=== PATIENT | female | born 1950 | race Caucasian/White ===

== ENCOUNTER 2021-08-29 16:57 | Inpatient (IN) | payer MEDICARE, BC ==
[~2021-08-29] VITALS: Ht 165.1 cm; Wt 78.0 kg
[~2021-08-29 16:57] MED LIST: niCARDipine in NS 40mg/200ml (0.2mg/ml) IVPB IV ONE
[2021-08-29 17:40] LABS: BASOPHILS # (AUTO) 0.1 X10'3 (0-0.2); EOSINOPHILS # (AUTO) 0.1 X10'3 (0-0.9); EOSINOPHILS % (AUTO) 1.4 % (0-6); HEMATOCRIT 38.4 % (35.0-45.0); HEMOGLOBIN 12.7 g/dl (12.0-16.0); LYMPHOCYTES # (AUTO) 2.5 X10'3 (1.1-4.8); LYMPHOCYTES % (AUTO) 32.3 % (21-51); MEAN CORPUSCULAR VOLUME 84.6 FL (78-98); MEAN PLATELET VOLUME 9.3 FL (7.4-10.4); MONOCYTES # (AUTO) 0.4 X10'3 (0-0.9); MONOCYTES % (AUTO) 5.1 % (2-12); NEUTROPHILS # (AUTO) 4.6 X10'3 (1.8-7.7); NEUTROPHILS % (AUTO) 60.2 % (42-75); PLATELET COUNT 212 X10'3 (140-440); RED BLOOD COUNT 4.54 X10'6 (4.20-5.60); WHITE BLOOD COUNT 7.7 X10'3 (4.5-11.0)
[2021-08-29] MEDS ORDERED: niCARDipine-NS 40mg/200ml IVPB 200 ML IV PRN ×2 (17:55→20:50)
[2021-08-29 18:01] LABS: APTT 27 SECONDS (22-32)
[2021-08-29 18:04] LABS: ALANINE AMINOTRANSFERASE 22 U/L (12-78); ALBUMIN 3.8 G/DL (3.4-5.0); ALBUMIN/GLOBULIN RATIO 1.2 (1.1-1.5); ALKALINE PHOSPHATASE 45 IU/L (46-116); ANION GAP 9 (8-16); ASPARTATE AMINO TRANSFERASE 14 U/L (10-37); BILIRUBIN,TOTAL 0.3 MG/DL (0.1-1.0); BLOOD UREA NITROGEN 17 MG/DL (7-18); BUN/CREATININE RATIO 22.7 (6.6-38.0); CALCIUM 9.5 MG/DL (8.5-10.1); CHLORIDE 104 MMOL/L (99-107); CREATININE 0.75 MG/DL (0.40-0.90); GLUCOSE 105 MG/DL (70-104); POTASSIUM 3.4 MMOL/L (3.5-5.1); SODIUM 143 MMOL/L (135-145); TOTAL CARBON DIOXIDE 29.8 MMOL/L (24-32); TOTAL PROTEIN 6.9 G/DL (6.4-8.2); eGFR 77 ML/MIN
[2021-08-29] MEDS ORDERED: iohexol 350MG/ML 100ml bottle IV ONE (18:21)
--- NOTE | 2021-08-29 18:39 | NUR ---
ASSUMED CARE OF PT. PT WITH STROKE RN IN ROOM.
[2021-08-29 19:04] LABS: HEMOGLOBIN A1C 5.6 % (4.5-6.2)
--- NOTE | 2021-08-29 19:39 | NUR ---
At [address] Watson and Dr. Rodriguez (teleneurologist) that TPa was indicated. Drawn up with ED RN at bedside and verified with two RNs. Bolus administered at 1800 with subsequent infusion beginning at 1801 and finishing at 1901. Nicardipine was initiated at 1820 after BP was 182/70 - only initiated at 2.5mg/hr instead of 5mg/hr. BP came down safely to 170s-160s. While pt. was in CTA BP down to 140s systolically, and Nicardipine stopped until further need arises.
[2021-08-29] MEDS ORDERED: morphine 2 MG/ML inj. syringe IV PRN (21:15)
[2021-08-29] MEDS ORDERED: acetaminophen 325mg tablet PO PRN ×2 (21:15)
[2021-08-29] MEDS ORDERED: ondansetron/PF 4mg/2ml inj IV PRN (21:15)
[2021-08-29] MEDS ORDERED: magnesium hydroxide 30ml (MOM) UD suspension PO PRN (21:15)
[2021-08-29] MEDS: niCARDipine-NS 40mg/200ml IVPB 200 ML IV SCH (21:15)
[2021-08-29] MEDS ORDERED: potassium Cl 20 mEq SR tablet PO PRN ×2 (21:15)
[2021-08-29] MEDS: normal saline 1000ml 1,000 ML IV SCH ×2 (21:28→21:36)
--- NOTE | 2021-08-29 21:52 | NUR ---
Assembly Associate on the [facility] speaking to pt
[2021-08-29 21:58] LABS: BASOPHILS # (AUTO) 0.1 X10'3 (0-0.2); BASOPHILS % (AUTO) 0.9 % (0-1); EOSINOPHILS # (AUTO) 0.1 X10'3 (0-0.9); HEMATOCRIT 41.1 % (35.0-45.0); HEMOGLOBIN 13.5 g/dl (12.0-16.0); LYMPHOCYTES # (AUTO) 2.1 X10'3 (1.1-4.8); LYMPHOCYTES % (AUTO) 28.7 % (21-51); MEAN CORPUSCULAR HEMOGLOBIN 27.8 PG (27.0-31.0); MEAN CORPUSCULAR HGB CONC 32.8 g/dL (33.0-36.5); MEAN CORPUSCULAR VOLUME 84.8 FL (78-98); MEAN PLATELET VOLUME 9.3 FL (7.4-10.4); MONOCYTES # (AUTO) 0.4 X10'3 (0-0.9); MONOCYTES % (AUTO) 5.4 % (2-12); NEUTROPHILS # (AUTO) 4.6 X10'3 (1.8-7.7); PLATELET COUNT 208 X10'3 (140-440); RED BLOOD COUNT 4.85 X10'6 (4.20-5.60); RED CELL DISTRIBUTION WIDTH 13.7 % (11.5-14.5); WHITE BLOOD COUNT 7.2 X10'3 (4.5-11.0)
[2021-08-29 22:20] LABS: ALANINE AMINOTRANSFERASE 23 U/L (12-78); ALBUMIN 3.9 G/DL (3.4-5.0); ALBUMIN/GLOBULIN RATIO 1.4 (1.1-1.5); ALKALINE PHOSPHATASE 49 IU/L (46-116); ANION GAP 10 (8-16); ASPARTATE AMINO TRANSFERASE 15 U/L (10-37); BILIRUBIN,TOTAL 0.3 MG/DL (0.1-1.0); BLOOD UREA NITROGEN 15 MG/DL (7-18); BUN/CREATININE RATIO 22.4 (6.6-38.0); CALCIUM 9.3 MG/DL (8.5-10.1); CHLORIDE 106 MMOL/L (99-107); CREATININE 0.67 MG/DL (0.40-0.90); GLUCOSE 88 MG/DL (70-104); POTASSIUM 3.8 MMOL/L (3.5-5.1); SODIUM 144 MMOL/L (135-145); TOTAL CARBON DIOXIDE 28.3 MMOL/L (24-32); TOTAL PROTEIN 6.7 G/DL (6.4-8.2); eGFR 88 ML/MIN
[2021-08-29] MEDS: atorvastatin 20mg tablet PO SCH (22:36)
[2021-08-29 23:30] VITALS: BP 155/73
[2021-08-30] VITALS (41 sets, daily range): BP systolic 103–175; BP diastolic 58–97
[2021-08-30] MEDS: niCARDipine-NS 40mg/200ml IVPB 200 ML IV SCH ×2 (05:15→13:15)
[2021-08-30 05:29] LABS: BASOPHILS # (AUTO) 0.1 X10'3 (0-0.2); BASOPHILS % (AUTO) 0.9 % (0-1); EOSINOPHILS # (AUTO) 0.1 X10'3 (0-0.9); EOSINOPHILS % (AUTO) 1.1 % (0-6); HEMATOCRIT 39.9 % (35.0-45.0); LYMPHOCYTES % (AUTO) 26.1 % (21-51); MEAN CORPUSCULAR HEMOGLOBIN 27.9 PG (27.0-31.0); MEAN CORPUSCULAR HGB CONC 32.7 g/dL (33.0-36.5); MEAN CORPUSCULAR VOLUME 85.2 FL (78-98); MEAN PLATELET VOLUME 9.5 FL (7.4-10.4); MONOCYTES # (AUTO) 0.6 X10'3 (0-0.9); MONOCYTES % (AUTO) 7.4 % (2-12); NEUTROPHILS % (AUTO) 64.5 % (42-75); PLATELET COUNT 201 X10'3 (140-440); RED BLOOD COUNT 4.68 X10'6 (4.20-5.60); RED CELL DISTRIBUTION WIDTH 13.9 % (11.5-14.5); WHITE BLOOD COUNT 7.8 X10'3 (4.5-11.0)
[2021-08-30 06:04] LABS: ALBUMIN 3.6 G/DL (3.4-5.0); ANION GAP 8 (8-16); BLOOD UREA NITROGEN 15 MG/DL (7-18); BUN/CREATININE RATIO 22.4 (6.6-38.0); CALCIUM 8.9 MG/DL (8.5-10.1); CHLORIDE 107 MMOL/L (99-107); CHOL/HDL RATIO 3.9 (0.00-4.99); CHOLESTEROL 252 MG/DL (0-200); CREATININE 0.67 MG/DL (0.40-0.90); GLUCOSE 86 MG/DL (70-104); HDL CHOLESTEROL 65 MG/DL (35-60); LDL CHOLESTEROL 167 MG/DL (50-100); POTASSIUM 3.8 MMOL/L (3.5-5.1); SODIUM 144 MMOL/L (135-145); TOTAL CARBON DIOXIDE 28.6 MMOL/L (24-32); TRIGLYCERIDES 64 MG/DL (20-135); eGFR 88 ML/MIN
[2021-08-30] MEDS: atorvastatin 20mg tablet PO SCH (07:43)
[2021-08-30] MEDS: K and/or MAG REPLACEMENT MC SCH (08:00)
[2021-08-30] MEDS ORDERED: aspirin 81mg tab.chew PO SCH (08:00)
[2021-08-30] MEDS ORDERED: NO HOME MEDS (10:14)
[2021-08-30] MEDS: pantoprazole 40MG/NS 100ML BAG 100 ML IV SCH (14:23)
--- NOTE | 2021-08-30 18:46 | NUR ---
[address] Freed from tele neurology who recommends asa 81mg and Plavix 75mg daily for 21 days then continue monotherapy. Pt very anxious to discharge tonite. I spoke with Dr Addison regarding Dr Freed's recommendations. Pt encouraged to stay until tomorrow and informed she could transfer to floor bed.
--- NOTE | 2021-08-31 01:23 | NUR ---
Report called to [facility] receiving nurse. Transferred TO ROOM 3027B via WHEELCHAIR ON TELE NUMBER 20 Belongings, SEE LIST . Special Issues communicated to receiving nurse.
--- NOTE | 2021-08-31 01:45 | NUR ---
Received pt from ICU via wheelchair. Pt is ambulatory and in no acute distress.
[2021-08-31 02:00] VITALS: BP 142/69
[2021-08-31 06:00] VITALS: BP 173/73
[2021-08-31 06:06] LABS: BASOPHILS # (AUTO) 0.1 X10'3 (0-0.2); BASOPHILS % (AUTO) 0.9 % (0-1); EOSINOPHILS # (AUTO) 0.1 X10'3 (0-0.9); EOSINOPHILS % (AUTO) 1.3 % (0-6); HEMATOCRIT 40.6 % (35.0-45.0); HEMOGLOBIN 13.3 g/dl (12.0-16.0); LYMPHOCYTES # (AUTO) 1.7 X10'3 (1.1-4.8); MEAN CORPUSCULAR HGB CONC 32.9 g/dL (33.0-36.5); MEAN PLATELET VOLUME 9.6 FL (7.4-10.4); MONOCYTES # (AUTO) 0.4 X10'3 (0-0.9); MONOCYTES % (AUTO) 6.1 % (2-12); NEUTROPHILS # (AUTO) 4.1 X10'3 (1.8-7.7); NEUTROPHILS % (AUTO) 64.7 % (42-75); PLATELET COUNT 209 X10'3 (140-440); RED BLOOD COUNT 4.77 X10'6 (4.20-5.60); RED CELL DISTRIBUTION WIDTH 13.8 % (11.5-14.5); WHITE BLOOD COUNT 6.4 X10'3 (4.5-11.0)
[2021-08-31 06:17] LABS: ALBUMIN 3.6 G/DL (3.4-5.0); ANION GAP 7 (8-16); BLOOD UREA NITROGEN 12 MG/DL (7-18); BUN/CREATININE RATIO 17.4 (6.6-38.0); CALCIUM 9.2 MG/DL (8.5-10.1); CHLORIDE 107 MMOL/L (99-107); CREATININE 0.69 MG/DL (0.40-0.90); GLUCOSE 78 MG/DL (70-104); MAGNESIUM 2.1 MG/DL (1.5-2.4); POTASSIUM 4.2 MMOL/L (3.5-5.1); SODIUM 141 MMOL/L (135-145); TOTAL CARBON DIOXIDE 27.3 MMOL/L (24-32); eGFR 85 ML/MIN
--- NOTE | 2021-08-31 06:25 | NUR ---
Patient in room PCU 3027. I have received report from Aravind LANGLEY and had the opportunity to ask questions and assume patient care.
--- NOTE | 2021-08-31 06:30 | NUR ---
Patient in room PCU 3027. I have received report from KORIN Jordan and had the opportunity to ask questions and assume patient care.
--- NOTE | 2021-08-31 06:33 | NUR ---
Problems reprioritized. Patient report given, questions answered & plan of care reviewed with Raffy LANGLEY.
[2021-08-31] MEDS: atorvastatin 20mg tablet PO SCH (07:12)
[2021-08-31] MEDS: pantoprazole 40MG/NS 100ML BAG 100 ML IV SCH (07:13)
[2021-08-31] MEDS: K and/or MAG REPLACEMENT MC SCH (08:00)
[2021-08-31] MEDS ORDERED: clopidogrel 75mg tablet PO SCH (08:00)
--- NOTE | 2021-08-31 08:02 | NUR ---
Message: Re: Marielle Klein. Room: 3027B. Pt's morning BP's continue to be in the 160's-170's systolic. Pt has no scheduled/PRN BP meds. -[facility] #[id number] -Dr. Pearl paged concerning Pt's morning BP
[2021-08-31] MEDS ORDERED: aspirin 81mg tab.chew PO SCH (08:30)
[2021-08-31] MEDS ORDERED: amLODIPine 5mg tablet PO SCH (10:20)
[2021-08-31 11:00] VITALS: BP 155/76
--- NOTE | 2021-08-31 12:31 | NUR ---
Message: Re: Marielle dailey. Room: 3027B. Pt asking when she will get Discharged today -[facility] #[id number] -Dr. Pearl paged concerning Pt's DC
[2021-08-31] MEDS ORDERED: NOR5T PO (12:35)
[2021-08-31] MEDS ORDERED: CLOP75TA34 PO (12:35)
[2021-08-31] MEDS ORDERED: ATOR20TA66 PO (12:35)
[2021-08-31] MEDS ORDERED: ASPI81TA53 PO (12:45)
--- NOTE | 2021-08-31 13:45 | NUR ---
Pt discharged to home via family. Discharge instructions reviewed and signed with this freelance copywriter. All questions were answered prior to signing discharge paperwork. Discharge medications to be filled at the patient's preferred pharmacy. Telemetry and PIV were removed. All belongings were returned to the patient. No home medications were brought in by the patient.
--- NOTE | 2021-08-31 13:45 | NUR ---
oriente documentation: I have reviewed and agree with all interventions, assessments performed and documented by [facility] RN.
== END 2021-08-31 13:45 | disposition home or self-care (01) | DRG 62 ==
LOC: ER 16:58 → ED HOLD 21:25 → ICU 2S 23:25 → PCU 3S 08-31 03:20
PROVIDERS: ADMIT Internal Medicine; ATTEND Internal Medicine
PROC: 3E03317 Introduction of Other Thrombolytic into Peripheral Vein, Percutaneous Approach (ICD-10-PCS; principal; 2021-08-29)
PROC: B3251ZZ Computerized Tomography (CT Scan) of Bilateral Common Carotid Arteries using Low Osmolar Contrast (ICD-10-PCS; 2021-08-29)
PROC: B32G1ZZ Computerized Tomography (CT Scan) of Bilateral Vertebral Arteries using Low Osmolar Contrast (ICD-10-PCS; 2021-08-29)
PROC: B32R1ZZ Computerized Tomography (CT Scan) of Intracranial Arteries using Low Osmolar Contrast (ICD-10-PCS; 2021-08-29)
PROC: B3281ZZ Computerized Tomography (CT Scan) of Bilateral Internal Carotid Arteries using Low Osmolar Contrast (ICD-10-PCS; 2021-08-29)
DX: I63.412 Cerebral infarction due to embolism of left middle cerebral artery (principal); G81.91 Hemiplegia, unspecified affecting right dominant side; R47.01 Aphasia; R27.0 Ataxia, unspecified; R29.706 NIHSS score 6; R47.1 Dysarthria and anarthria; Z82.0 Family history of epilepsy and other diseases of the nervous system; Z82.3 Family history of stroke
CPT/HCPCS: 36415; 37195; 70450; 70496; 70498; 70551; 71045; 80048; 80053; 80061; 82948; 83036; 83735; 84484; 85025; 85610; 85730; 87081; 92508; 92616; 93005; 93306; 96374; 97161; 97530; 99291; C9113; G0378; J2997; J3490; J7030; Q9967

== ENCOUNTER 2021-09-15 08:34 | Emergency (ER) | payer MEDICARE, BC ==
[~2021-09-15] VITALS: Ht 165.1 cm; Wt 77.7 kg
[~2021-09-15 08:34] MED LIST changes: +ASPI81TA53 PO; +ATOR20TA66 PO; +CLOP75TA34 PO; +NOR5T PO; -niCARDipine in NS 40mg/200ml (0.2mg/ml) IVPB IV ONE
[2021-09-15 09:08] LABS: BASOPHILS # (AUTO) 0.1 X10'3 (0-0.2); EOSINOPHILS # (AUTO) 0.1 X10'3 (0-0.9); EOSINOPHILS % (AUTO) 1.9 % (0-6); HEMATOCRIT 40.3 % (35.0-45.0); HEMOGLOBIN 12.9 g/dl (12.0-16.0); LYMPHOCYTES % (AUTO) 15.9 % (21-51); MEAN CORPUSCULAR HEMOGLOBIN 26.9 PG (27.0-31.0); MEAN CORPUSCULAR HGB CONC 31.9 g/dL (33.0-36.5); MEAN CORPUSCULAR VOLUME 84.3 FL (78-98); MEAN PLATELET VOLUME 8.8 FL (7.4-10.4); MONOCYTES # (AUTO) 0.3 X10'3 (0-0.9); MONOCYTES % (AUTO) 4.9 % (2-12); NEUTROPHILS # (AUTO) 4.9 X10'3 (1.8-7.7); NEUTROPHILS % (AUTO) 76.3 % (42-75); PLATELET COUNT 216 X10'3 (140-440); RED BLOOD COUNT 4.78 X10'6 (4.20-5.60); RED CELL DISTRIBUTION WIDTH 13.9 % (11.5-14.5); WHITE BLOOD COUNT 6.5 X10'3 (4.5-11.0)
[2021-09-15 09:43] LABS: ALANINE AMINOTRANSFERASE 24 U/L (12-78); ALBUMIN 3.6 G/DL (3.4-5.0); ALBUMIN/GLOBULIN RATIO 1.1 (1.1-1.5); ALKALINE PHOSPHATASE 54 IU/L (46-116); ANION GAP 6 (8-16); ASPARTATE AMINO TRANSFERASE 21 U/L (10-37); BILIRUBIN,TOTAL 0.6 MG/DL (0.1-1.0); BLOOD UREA NITROGEN 11 MG/DL (7-18); BUN/CREATININE RATIO 18.3 (6.6-38.0); CALCIUM 8.7 MG/DL (8.5-10.1); CHLORIDE 106 MMOL/L (99-107); GLUCOSE 119 MG/DL (70-104); POTASSIUM 3.6 MMOL/L (3.5-5.1); SODIUM 143 MMOL/L (135-145); TOTAL CARBON DIOXIDE 31.2 MMOL/L (24-32); eGFR > 90 ML/MIN
--- NOTE | 2021-09-15 09:43 | NUR ---
PT STATES, " ONLY WHEN I LAY DOWN IS WHEN I GET DIZZY AND BLURRED VISION. "
[2021-09-15 09:54] LABS: APTT 28 SECONDS (22-32)
--- NOTE | 2021-09-15 11:00 | NUR ---
pt going to ct scan via [place] in stable condiiton.
[2021-09-15 12:52] LABS: CLARITY,URINE CLEAR (Clear); GLUCOSE, URINE NEGATIVE (Neg); KETONES,URINE NEGATIVE (Neg); LEUKOCYTE ESTERASE ,URINE TRACE (Neg); NITRITES, URINE NEGATIVE (Neg); OCCULT BLOOD,URINE NEGATIVE (Neg); PROTEIN,URINE NEGATIVE (Neg); UROBILINOGEN,URINE 0.2 E.U/dL (0.2-1.0)
[2021-09-15] MEDS ORDERED: meclizine 12.5mg tablet PO ONE (13:00)
[2021-09-15 13:05] LABS: COLOR,URINE STRAW (Yellow); UA COLLECTION TYPE VOIDED
[2021-09-15 13:06] LABS: BACTERIA,URINE FEW /HPF (Neg); RBC,URINE 0-2 /HPF (0-2); SQUAMOUS EPITHELIAL CELL,UR FEW /LPF (FEW); TRANSITIONAL EPI CELLS,URINE FEW /HPF; WBC,URINE 0-4 /HPF (0-4)
[2021-09-15] MEDS ORDERED: MECL-159 PO (13:10)
[2021-09-15 13:35] VITALS: BP 148/85
== END 2021-09-15 13:38 | disposition home or self-care (01) ==
LOC: ER 08:35
DX: H81.399 Other peripheral vertigo, unspecified ear (principal)
CPT/HCPCS: 36415; 70450; 70551; 71045; 80053; 81001; 85025; 85610; 85730; 87088; 93005; 99285; J8597